=== PATIENT | male | born 1970 | race Two or more races ===

== ENCOUNTER → 2016-09-03 | Outpatient (CLI) | payer MEDICAID ==
--- NOTE | 2016-09-03 15:12 | REP ---
LUMBAR SPINE, FIVE VIEWS: HISTORY: Back pain. There is no acute fracture or subluxation. The L3-4 through L5-S1 intervertebral discs are decreased in height consistent with disc degeneration. Osteophytes are present throughout the lumbar spine. There is narrowing of the L4-5 and L5-S1 facet joints. IMPRESSION: Degenerative change, as described above.
--- NOTE | 2016-09-03 15:41 | REP ---
Clinical: Pain. Technique: AP, lateral, bilateral oblique views of the right and left wrist. Findings: No acute fracture dislocation. No significant degenerative arthritic changes. Surrounding soft tissues are normal. Impression: Normal bilateral wrist radiograph series
--- NOTE | 2016-09-03 15:42 | REP ---
Clinical: Pain . Technique: AP, lateral, bilateral oblique and sunrise views of the right and left knee. Findings: The osseous structures and joint spaces are intact and normal. There is no evidence for acute fracture or dislocation. No joint effusion is appreciated. Surrounding soft tissues are unremarkable. No subcutaneous emphysema or radiodense foreign body. Impression: Normal age appropriate examination. No significant arthritic degenerative changes appreciated.
--- NOTE | 2016-09-03 16:22 | REP ---
Cervical spine series: Eight views: History: Chronic neck pain. Findings: Lateral views done in flexion/extension and neutral position show mild disc space narrowing at the C5-6 disc space. No subluxation or instability is seen. Vertebral body heights are preserved. Alignment is normal. Open mouth odontoid views are unremarkable. AP view shows no abnormality. Oblique images demonstrate intact neural foramina bilaterally at each cervical level and normally aligned facets. Impression: Minimal degenerative disc changes at C5-6. Otherwise negative cervical spine series.
== END ==
LOC: M CLY 13:17
PROVIDERS: ATTEND Physician Assistant
DX: M51.36 Other intervertebral disc degeneration, lumbar region (principal); M51.37 Other intervertebral disc degeneration, lumbosacral region; M50.30 Other cervical disc degeneration, unspecified cervical region

== ENCOUNTER → 2016-09-09 | Outpatient (REF) | payer MEDICAID ==
[2016-09-10 16:55] LABS: VITAMIN B12 LEVEL 441 PG/ML (247-911)
[2016-09-10 17:08] LABS: BASO % 0.4 % (0.0-1.0); EOS # 0.3 K/mm3 (0.0-0.50); EOS % 4.6 % (0.0-3.0); LARGE UNSTAINED CELL # 0.1 K/mm3 (0.0-0.4); LARGE UNSTAINED CELL % 1.6 % (0.0-4.0); LYMPH # 1.2 K/mm3 (1.5-4.5); LYMPH % 16.2 % (24.0-44.0); MEAN CORPUSCULAR HEMOGLOBIN 33.3 pg (27.0-33.0); MEAN CORPUSCULAR HGB CONC 35.2 g/dl (32.0-36.5); MEAN CORPUSCULAR VOLUME 94.6 fl (80.0-96.0); MONO # 0.4 K/mm3 (0.0-0.8); MONO % 5.5 % (0.0-5.0); NEUTROPHILS % 71.7 % (36.0-66.0); PLATELET COUNT, AUTOMATED 247 k/mm3 (150-450); RED CELL DISTRIBUTION WIDTH 12.5 % (11.5-14.5); WHITE BLOOD COUNT 6.9 K/mm3 (4.0-10.0)
[2016-09-10 22:13] LABS: ALBUMIN 3.7 GM/DL (3.2-5.2); ALBUMIN/GLOBULIN RATIO 1.32 (1.00-1.93); ALKALINE PHOSPHATASE 92 U/L (45-117); ALT/SGPT 26 U/L (12-78); ANION GAP 9 MEQ/L (8-16); AST/SGOT 18 U/L (15-37); BILIRUBIN,TOTAL 0.4 MG/DL (0.2-1.0); BLOOD UREA NITROGEN 13 MG/DL (7-18); CALCIUM LEVEL 8.7 MG/DL (8.5-10.1); CARBON DIOXIDE LEVEL 25 MEQ/L (21-32); CHLORIDE LEVEL 105 MEQ/L (98-107); CHOLESTEROL LEVEL 181 MG/DL (<200); CREATININE FOR GFR 0.81 MG/DL (0.70-1.30); FREE T4 0.98 NG/DL (0.76-1.46); GLOMERULAR FILTRATION RATE > 60.0 (>60); GLUCOSE, FASTING 89 MG/DL (70-105); POTASSIUM SERUM 4.4 MEQ/L (3.5-5.1); SODIUM LEVEL 139 MEQ/L (136-145); TOTAL PROTEIN 6.5 GM/DL (6.4-8.2); TRIGLYCERIDES LEVEL 108 MG/DL (<150)
== END ==
LOC: M SFHCCAPE 09:48
PROVIDERS: ATTEND Physician Assistant
DX: Z13.6 Encounter for screening for cardiovascular disorders (principal); M25.50 Pain in unspecified joint

== ENCOUNTER → 2017-02-10 | Outpatient (REF) | payer OTHER ==
[2017-02-10 16:57] LABS: PROLACTIN 5.2 NG/ML (2.1-17.7)
[2017-02-17 00:06] LABS: TESTOSTERONE %FREE+WEAKLY BOUN 19.7 % (9.0-46.0); TESTOSTERONE FREE+WEAKLY BOUND 120.2 ng/dL (40.0-250.0)
== END ==
LOC: M SFHCCAPE 09:57
PROVIDERS: ATTEND Physician Assistant
DX: N52.9 Male erectile dysfunction, unspecified (principal)

== ENCOUNTER → 2017-02-26 | Outpatient (CLI) | payer OTHER | LOC: M PLARAD 11:05 | DX: M54.5 Low back pain (principal) | CPT/HCPCS: 72148 ==